=== PATIENT | female | born 1975 | race African-American/Black ===

== ENCOUNTER → 2016-05-28 | Outpatient (CLI) | payer OTHER ==
[~2016-05-28] MED LIST: BACLOFEN10 MG PO; CLARITIN10 M1 PO; FLEXERIL10 MG PO; LEVOXYL112 MC1 PO; LORTAB 5/500 TA1 TA1 PO; NAPROXEN PO; VITAMIN D32000 UNIT PO
--- NOTE | ~2016-05-28 | CR141 ---
[facility] A Service of [facility] & [facility] RADIOLOGY TEXT RESULTS PATIENT: BRUCE COLE LOCATION: [facility] : 75 UNIT #: [id number] AGE: [address]: Brenda Pat APRN SEX: F ORDER DR: [id number] [facility] [address]. [place], [place] [address] [id number] O MR#: [id number] Acc #: [id number] NAME: BRUCE COLE : 1975 SEX: F STUDY DATE/TIME: 05/28/2016 11:55 UNIT: [facility] ROOM: STUDY DESCRIPTION: CR Hand Min 3 Views Lt Attending Physician: Brenda Pat Aprn Ordering Physician: Brenda Pat Aprn Primary Care Physician: No Primary Care Physician MEDICAL IMAGING REPORT This report is preliminary unless electronic signature is present EXAM Left hand 05/28/2016 HISTORY Paresthesias for the past week. TECHNIQUE 3 views of the hand were obtained. FINDINGS AP, lateral, and oblique projections of the hand show good mineralization with normal carpal, metacarpal, and phalangeal anatomy without indication of fracture, dislocation, or soft tissue radiopaque foreign body. IMPRESSION Normal hand. Dictated by... Rowdy Rodriguez M.D. THIS IS AN ELECTRONICALLY VERIFIED REPORT Rowdy Rodriguez M.D. at 05/31/2016 11:01 AM TERRENCE/ravinder TD: 05/30/2016 10:52 JOB #: [id number] MEDICAL IMAGING REPORT Page 1 of 1 COPY
--- NOTE | ~2016-05-28 | CR281 ---
[facility] A Service [facility] RADIOLOGY TEXT RESULTS PATIENT: BRUCE COLE LOCATION: [facility] : 75 UNIT #: [id number] AGE: [address]: Brenda Pat APRN SEX: F ORDER DR: [id number] [id number] [place], [place] [address] [id number] O MR#: [id number] Acc #: [id number] NAME: BRUCE COLE : 1975 SEX: F STUDY DATE/TIME: 05/28/2016 11:54 UNIT: [facility] ROOM: STUDY DESCRIPTION: CR Wrist Min 3 View Lt Attending Physician: Brenda Pat Aprn Ordering Physician: Brenda Pat Aprn Primary Care Physician: Primary Care Physician No MEDICAL IMAGING REPORT This report is preliminary unless electronic signature is present EXAM Left wrist HISTORY Paresthesias to the left upper extremity for the past 2 weeks. TECHNIQUE 3 views of the wrist were obtained. FINDING Wrist evaluation in multiple projections shows normal mineralization of the bony structures about the wrist and satisfactory articular relationship of the radius and ulna to the proximal carpal row and of the distal carpal segments to the metacarpal bases. There is no indication of fracture or dislocation, and no soft tissue radiopaque foreign body is present. No congenital defects are apparent. IMPRESSION Normal wrist. Dictated by... Rowdy Rodriguez M.D. THIS IS AN ELECTRONICALLY VERIFIED REPORT Rowdy Rodriguez M.D. at 05/31/2016 11:01 AM KETANF/elio TD: 05/30/2016 10:52 JOB #: [id number] [facility] A Service [facility] RADIOLOGY TEXT RESULTS PATIENT: BRUCE COLE LOCATION: [facility] : 75 UNIT #: [id number] AGE: [address]: Brenda Pat APRN SEX: F ORDER DR: MEDICAL IMAGING REPORT Page 1 of 1 COPY
--- NOTE | ~2016-05-28 | CR58 ---
[facility] A Service of [facility] & [facility] RADIOLOGY TEXT RESULTS PATIENT: BRUCE COLE LOCATION: [facility] : 75 UNIT #: [id number] AGE: [address]: Brenda Pat APRN SEX: F ORDER DR: [id number] [facility] [address]. [place], [place] [address] [id number] O MR#: [id number] Acc #: [id number] NAME: BRUCE COLE : 1975 SEX: F STUDY DATE/TIME: 05/28/2016 11:55 UNIT: [facility] ROOM: STUDY DESCRIPTION: CR Cervical Spine 2 or 3 Views Attending Physician: Brenda Pat Aprn Ordering Physician: Brenda Pat Aprn Primary Care Physician: Primary Care Physician No MEDICAL IMAGING REPORT This report is preliminary unless electronic signature is present EXAM Cervical spine series HISTORY Paresthesias to the left upper extremity for the past week. TECHNIQUE 3 views of the cervical spine were obtained. FINDINGS There is disc space narrowing with an anterior osteophyte at C4-5. The other cervical discs are unremarkable. Facets are intact. No prevertebral soft tissue swelling is seen and no destructive bone lesions are noted. IMPRESSION Moderate degenerative disc disease C4-5. Otherwise negative. Dictated by... Rowdy Rodriguez M.D. THIS IS AN ELECTRONICALLY VERIFIED REPORT Rowdy Rodriguez M.D. at 05/31/2016 11:01 AM RLF/viviane TD: 05/30/2016 10:58 JOB #: [id number] MEDICAL IMAGING REPORT Page 1 of 1 COPY
== END | disposition home or self-care (01) ==
LOC: CRAD 11:10
DX: R20.9 Unspecified disturbances of skin sensation (principal); M50.30 Other cervical disc degeneration, unspecified cervical region
CPT/HCPCS: 72040; 73110; 73130

== ENCOUNTER → 2016-10-08 | Outpatient (CLI) | payer OTHER ==
--- NOTE | ~2016-10-08 | CR7 ---
[facility] A Service of [facility] & [facility] RADIOLOGY TEXT RESULTS PATIENT: BRUCE COLE LOCATION: [facility] : 75 UNIT #: [id number] AGE: [address]: Brenda Pat APRN SEX: F ORDER DR: [id number] [facility] [address]. [place], [place] [address] [id number] O MR#: [id number] Acc #: [id number] NAME: BRUCE COLE : 1975 SEX: F STUDY DATE/TIME: 10/08/2016 10:44 UNIT: [facility] ROOM: STUDY DESCRIPTION: CR Abdomen Single AP View Attending Physician: Brenda Pat Aprn Referring Physician: Brenda Pat Aprn Ordering Physician: Brenda Pat Aprn Primary Care Physician: Brenda Pat Aprn MEDICAL IMAGING REPORT This report is preliminary unless electronic signature is present EXAM Abdomen, one-view; 10/08/2016, 1044 hours. CLINICAL HISTORY 40-year-old woman with frequent urination and dysuria with abdominal pain for 1 week. Microscopic hematuria, history of frequent urinary tract infections. COMPARISON Lumbar spine series 10/08/2011. No prior abdominal film. FINDINGS Supine view of the abdomen demonstrates a nonspecific bowel gas pattern. There is no obstruction. No bowel wall thickening. No calcifications are seen over the right kidney or left kidney. There is calcification in the lateral left lower pelvis measuring 4 mm. I would favor that this is a phlebolith giving its somewhat lateral location; however, this is new from the prior CT which raises concern for a distal ureteral calculus. No right-sided stones are seen. IMPRESSION 1. No bowel obstructions seen. 2. No definite intrarenal calculi are seen. 3. There is a 4 mm calcification in the left hemipelvis which could represent a phlebolith or a distal ureteral calculus. This is not seen on the lumbar spine series of 10/08/2011. If the patient has persistent hematuria consider stone protocol CT. Dictated by... Ariana Mcgowan M.D. [facility] A Service of [facility] & [facility] RADIOLOGY TEXT RESULTS PATIENT: BRUCE COLE LOCATION: [facility] : 75 UNIT #: [id number] AGE: [address]: Brenda Pat APRN SEX: F ORDER DR: THIS IS AN ELECTRONICALLY VERIFIED REPORT Ariana Mcgowan M.D. at 10/10/2016 8:41 AM BLAKE/rocky TD: 10/09/2016 13:35 JOB #: [id number] MEDICAL IMAGING REPORT Page 1 of 1 COPY
== END | disposition home or self-care (01) ==
LOC: CRAD 10:15
DX: R31.9 Hematuria, unspecified (principal); R30.0 Dysuria; N28.89 Other specified disorders of kidney and ureter
CPT/HCPCS: 74000